=== PATIENT | male | born 1990 | race Caucasian/White ===

== ENCOUNTER 2019-09-01 08:48 | Emergency (ER) | payer OTHER ==
[2019-09-01] MEDS ORDERED: Lidocaine 2% 5 ML SDV INJECT ONE (08:49)
--- NOTE | 2019-09-01 09:30 | EDM.PDOC ---
ED HPI GENERAL MEDICAL PROBLEM - General Chief Complaint: Skin Complaint Stated Complaint: ABCESS Time Seen by Provider: 09/01/19 08:55 Source of Information: Reports: Patient History Limitations: Reports: No Limitations - History of Present Illness INITIAL COMMENTS - FREE TEXT/NARRATIVE: Patient is a 29 YO WM who presented to the ED because of perirectal pain which started 3 days ago. He can't sit down because of the pain which he rate at 10/ 10. He denies having any fever or chills. He had the same problem 4 years ago. periarea Pain Score (Numeric/FACES): 10 - Related Data Allergies Allergy/AdvReac Type Severity Reaction Status Date / Time No Known Allergies Allergy Verified 09/01/19 09:18 Home Meds: Home Meds Docusate Sodium [Colace] 100 mg PO BID #15 cap 09/01/19 [Rx] Ibuprofen 800 mg PO Q8H PRN #30 tablet 09/01/19 [Rx] Sulfamethoxazole/Trimethoprim [Bactrim Ds Tablet] 1 each PO BID #20 tablet 09/01 [Rx] ED ROS GENERAL - Review of Systems Review Of Systems: See Below Constitutional: Reports: No Symptoms HEENT: Reports: No Symptoms Respiratory: Reports: No Symptoms Cardiovascular: Reports: No Symptoms Endocrine: Reports: No Symptoms GI/Abdominal: Reports: No Symptoms, Other (perirectal pain) : Reports: No Symptoms Musculoskeletal: Reports: No Symptoms Skin: Reports: No Symptoms ED EXAM, SKIN/RASH Exam: See Below Exam Limited By: No Limitations General Appearance: Alert, No Apparent Distress Ears: Normal External Exam, Normal Canal Nose: Normal Inspection, Normal Mucosa Throat/Mouth: Normal Inspection, Normal Lips Head: Atraumatic, Normocephalic Neck: Normal Inspection Respiratory/Chest: No Respiratory Distress Cardiovascular: Normal Peripheral Pulses, Regular Rate, Rhythm GI/Abdominal: Normal Bowel Sounds, Soft, Non-Tender Rectal (Males) Exam: Other (erythema and a fluctuant mass dime size) Course - Vital Signs Text/Narrative:: Procedure Note: The perirectal area was sterilized with hydrogen peroxide followed by iodine swab. 1 ml of 2% lidocaine was injected then a midline incision was done and a significant amount of abscess came out. Patient tolerated the procedure well without any complication. Last Recorded V/S: Last Vital Signs Temp 36.3 C 09/01/19 08:55 Pulse 73 09/01/19 08:55 Resp 14 09/01/19 08:55 BP 164/85 H 09/01/19 08:55 Pulse Ox 99 09/01/19 08:55 Departure - Departure Time of Disposition: 09:30 Disposition: Home, Self-Care 01 Condition: Good Clinical Impression: Cellulitis and abscess of buttock - Discharge Information Prescriptions: Docusate Sodium [Colace] 100 mg PO BID #15 cap Ibuprofen 800 mg PO Q8H PRN #30 tablet PRN Reason: Pain Sulfamethoxazole/Trimethoprim [Bactrim Ds Tablet] 1 each PO BID #20 tablet Instructions: Skin Abscess, Cellulitis, Adult Referrals: Maco Scruggs MD [Primary Care Provider] - Forms: ED Department Discharge Additional Instructions: Please read discharge instructions on cellulitis and abscess Bactrim ds take 1 tablet twice daily for 10 days Ibuprofen 800 mg with tylenol 1000 mg every 8 hours as needed for pain colace 100 mg twice daily to sofenten your stool. Take it with a glass of prune juice Follow up if symptoms persist
[2019-09-01 09:31] VITALS: BP 164/85; PULSE 73
== END 2019-09-01 09:45 | disposition home or self-care (01) ==
LOC: FB.ED 08:48
DX: L02.31 Cutaneous abscess of buttock (principal); L03.317 Cellulitis of buttock
CPT/HCPCS: 10060; 99283; J2001